=== PATIENT | female | born 1990 | race Caucasian/White ===

== ENCOUNTER 2016-05-13 20:53 | Emergency (ER) | payer SELFPAY ==
[2016-05-13 21:37] VITALS: BP 118/68; PULSE 66; TEMP 99.1; BMI 25.7
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
== END 2016-05-13 22:19 | disposition home or self-care (01) ==
LOC: EDMC 20:53
DX: S76.012A Strain of muscle, fascia and tendon of left hip, initial encounter (principal); S40.022A Contusion of left upper arm, initial encounter; Y04.0XXA Assault by unarmed brawl or fight, initial encounter
CPT/HCPCS: 73502; 99282